=== PATIENT | female | born 1985 | race Caucasian/White ===

== ENCOUNTER 2019-10-25 11:58 | Emergency (ER) | payer OTHER, SELFPAY ==
[2019-10-25 12:13] VITALS: BP 142/80; PULSE 80; RESP 16; TEMP 36.4; O2SAT 100
--- NOTE | 2019-10-25 12:39 | ED.URI ---
HPI - URI/Sore Throat General Chief Complaint: Upper Respiratory Infection Stated Complaint: sore throat Time Seen by Provider: 10/25/19 12:24 Source: patient Mode of arrival: ambulatory Limitations: no limitations History of Present Illness HPI Narrative: A 34 y/o female, who is a nonsmoker/nondrinker, presents to with c/o a sore throat for 1 week that has worsened since onset. Pt notes that she was diagnosed with strep 2 months ago with similar onset of symptoms. Pt works as a elementary school teacher's aide. She reports a cough and sinus drainage, but denies a fever, rhinorrhea, and N/V/D. Pt in the room with her 5 year old son who is being seen for a fever and cough- whose available test are normal . The patienhas been informed that they may have pre-hypertension or Hypertension based on a BP reading in the department. I recommend that the patient call the primary care provider listed on their discharge instructions or a physician of their choice this week to arrange follow up for further evaluation of possible pre-hypertension or Hypertension Onset (ago): week(s) (1) Consistency: progressively worsening Related Data Home Medications Medication Instructions Recorded Confirmed escitalopram oxalate mg 10/25/19 norethindrone-e.estradiol-iron [Lo tablet 10/25/19 Loestrin Fe] Allergies Allergy/AdvReac Type Severity Reaction Status Date / Time No Known Allergies Allergy Unknown Unverified 05/21/19 06:09 Review of Systems Review of Systems: Narrative: General/Constitutional: Denies: weight loss,fever Eyes: Denies: Redness,discharge Ears/Nose/Throat: Reports: sore throat, sinus drainage; Denies: Epistaxis,ear discharge, rhinorrhea Respiratory: Reports: a cough; Denies: Hemoptysis Gastrointestinal: Denies: N/V/D, Bleeding-rectal Skin: Denies: Lumps, eruption Neurologic: Denies: Focal Weakness,Sz Hematologic: Denies: Petechiae/Purpura Psychiatric: Denies: Suicidal ideation All systems reviewed & are unremarkable except as noted in HPI and below PMFSH Past Medical History Medical History (Updated 10/25/19 @ 12:59 by Derik Ochoa MD) Gestational HTN depression Strep throat Surgical History Surgical History H/O bilateral breast reduction surgery History of tonsillectomy Social History Social History (Updated 10/25/19 @ 12:45 by Emily Rider) Smoking status: Never smoker Alcohol intake: never Comments PCP: Dr. Orozco At time of signature, agree with nursing past medical, surgical, social and family history. There is no relevant family history pertinent to the presenting complaint Exam Narrative: Exam Narrative: General Appearance: Well appearing, Well nourished EYE: PERRLA, Conjunctiva clear Ears: Auditory canal normal, TM normal Nose: Rhinorrhea, Mucousal erythema Mouth/Throat: MM moist, Uvula midline, Pharyngeal erythema Neck: Supple, No adenopathy Respiratory: No respiratory distress, airway patent Cardiovascular: RRR, Musculoskeletal: Non tender, Normal strength Skin: Warm, Dry Neurological: A&O x3, CN II-XII intact Psychiatric: Normal mood, Normal affect The patient agrees, in light of health emergency- in my medical judgement, only a personal or video chat was preferable to fully undress & examine the patient exhibiting potential COVID symptoms, in order to limit mutual risk of infection. Course Vital Signs Vital signs: Vital Signs Temperature 97.6 F 10/25/19 12:13 Pulse Rate 80 10/25/19 12:13 Respiratory Rate 16 10/25/19 12:13 Blood Pressure 142/80 H 10/25/19 12:13 Pulse Oximetry 100 10/25/19 12:13 Temperature 97.6 F 10/25/19 12:13 Pulse Rate 80 10/25/19 12:13 Respiratory Rate 16 10/25/19 12:13 Blood Pressure 142/80 H 10/25/19 12:13 Pulse Oximetry 100 10/25/19 12:13 MDM - URI/Sore Throat Lab Data Labs: Influenza A Screen Negative Ref
== END 2019-10-25 13:08 | disposition home or self-care (01) ==
PROVIDERS: Emergency Provider Emergency Medicine; PCP Family Medicine
DX: J02.9 Acute pharyngitis, unspecified (principal)
CPT/HCPCS: 87081; 87804; 87880; 99213; G0463

== ENCOUNTER 2020-04-27 17:34 | Outpatient (CLI) | payer OTHER, SELFPAY ==
--- NOTE | ~2020-04-27 | XR_ITS ---
EXAMINATION: XR foot RT min 3V DATE: 04/27/2020 17:56 INDICATION: Chronic medial foot and ankle pain TECHNIQUE: Dorsoplantar, lateral, and 2 oblique views of the right foot were obtained. COMPARISON: None. FINDINGS: There is soft tissue swelling of ankle. An age-indeterminate avulsion fracture of the later al malleolus is noted. Bone alignment of the foot is normal. No foot fracture is identified. IMPRESSION: 1. No acute osseous abnormality of the foot. 2. Age-indeterminate fracture of the lateral malleolus. Reviewed, dictated and finalized at location A.
--- NOTE | ~2020-04-27 | XR_ITS ---
EXAMINATION: XR ankle RT min 3V INDICATION: Right ankle pain TECHNIQUE: Four views of the right ankle are obtained. COMPARISON: None available FINDINGS: There is an age-indeterminate avulsion fracture of the lateral malleolus. Ankle soft tissue swelling is present. There is no subluxation. IMPRESSION: 1. Age-indeterminate avulsion fracture of the lateral malleolus. Reviewed, dictated and finalized at location A.
== END 2020-04-27 17:35 | disposition home or self-care (01) ==
LOC: CHSIMG 17:36
PROVIDERS: PCP Family Medicine; Visit Provider Family Medicine
DX: M25.579 Pain in unspecified ankle and joints of unspecified foot (principal)
CPT/HCPCS: 73610; 73630

== ENCOUNTER 2020-05-02 15:55 | Outpatient (RCR) | payer OTHER, SELFPAY ==
--- NOTE | 2020-05-05 15:00 | PTOPEVAL ---
Thank you for referring Lo Palacios to [facility].? The patient is scheduled to be seen for therapy? _2___x/week for 8 visits. Please review, sign, date and return this plan of care ANGEL. I agree with and certify that the following plan of care is medically necessary. Referring Physician Date Admitting Provider: Attending Provider: John Paul Orozco MD Referring Provider: *PT Outpatient Evaluation Start: 05/02/20 16:05 Freq: Status: Active Protocol: Document 05/02/20 16:00 OZZY (Rec: 05/05/20 15:00 OZZY [id number]) Therapy Assessment Status Assessment Status Assessment Status Evaluation Evaluation Information Problem Diagnosis right ankle/foot pain Onset 04/20/20 Subjective Information Pt. reports that she has had Query Text:As Reported By Patient/ several years of on/off right Family foot pain. She describes pain into the heel and arch of the right foot. She states that pain is increased with standing activities. She has attempted stretching and icing with little relief. She reports that her goal is to decrease her right foot pain. Pain Assessment Pain Scale Pain Scale Used Numeric (1 - 10) Self Report Pain Assessment Right Foot/Feet Reported Pain Level 8 Pain Score Pain Score 8: Self Report Lower Extremity Range of Motion General Lower Extremity Range of Motion Gross Lower Extremity Range of Motion right ankle DF AROM with knee Comments extended 5 degrees left ankle DF AROM with knee extended 14 degrees Pt. presents with 60 degrees passive great toe extension on both right and left Lower Extremity Muscle Strength Testing General Lower Extremity Strength Gross Lower Extremity Strength bilateral hip abduction 4/5 right ankle inversion4/5 right ankle eversion 4+/5 Posture Posture Standing Position Additional Posture Comments Pt. presents with excessive calcaneal valgus and forefoot valgus in standing on the right compared to the left. Palpation Assessment Palpation Palpation TTP noted at the area of the medial calcaneus on the right and into the medial longitudinal arch. Gait Assessment Gait Assessment
== END 2020-05-19 10:20 | disposition home or self-care (01) ==
LOC: CHSPT 15:55
PROVIDERS: PCP Family Medicine; Visit Provider Family Medicine
DX: M25.571 Pain in right ankle and joints of right foot (principal)
CPT/HCPCS: 97110; 97112; 97140; 97161

== ENCOUNTER → 2021-06-27 13:47 | Outpatient (REF) | payer OTHER, SELFPAY | LOC: ANHLAB 13:47 | PROVIDERS: PCP Family Medicine; Visit Provider Nurse Practitioner | DX: D22.4 Melanocytic nevi of scalp and neck (principal) | CPT/HCPCS: 88305 ==

== ENCOUNTER 2021-08-07 16:15 | Outpatient (CLI) | payer OTHER, SELFPAY ==
--- NOTE | ~2021-08-07 | XR_ITS ---
EXAMINATION: XR foot LT min 3V EXAM DATE: 08/07/2021 16:47 INDICATION: Pain across top of foot x 3 mo no injury . TECHNIQUE: Right foot dorsoplantar, lateral and oblique projections obtained and reviewed. There is no prior study for comparison. FINDINGS: Right metatarsal bones unremarkable. No periosteal reaction or band of sclerosis to sugge st subacute stress fracture. There are no bony erosions identified. There is mild left ankle osteoa rthritis. There are no acute fractures or dislocations identified. There is no subcutaneous gas. Th e soft tissue is unremarkable. There are no radiopaque foreign bodies. IMPRESSION: 1. Unremarkable XR foot LT min 3V exam. Reviewed, dictated and finalized at location A. IAGE AND FAMILY COUNSELOR
== END 2021-08-07 16:16 | disposition home or self-care (01) ==
LOC: CHSIMG 16:17
PROVIDERS: PCP Family Medicine; Visit Provider Family Medicine
DX: M79.672 Pain in left foot (principal)
CPT/HCPCS: 73630

== ENCOUNTER 2022-06-14 10:46 | Outpatient (RCR) | payer OTHER, SELFPAY ==
[2022-06-14 11:09] VITALS: BMI 52.0
[2022-06-14 14:39] VITALS: BMI 52.0
== END 2022-09-10 14:35 | disposition home or self-care (01) ==
LOC: ANHDMC 10:46
PROVIDERS: PCP Family Medicine; Visit Provider Family Medicine
DX: Z71.3 Dietary counseling and surveillance (principal)
CPT/HCPCS: 97802

== ENCOUNTER 2023-06-25 11:00 | Outpatient (CLI) | payer OTHER, SELFPAY ==
--- NOTE | ~2023-06-25 | XR_ITS ---
XR chest 2V 06/25/2023 11:55 Indication: Acute upper respiratory infection and cough for 3 days Procedure: 2 view chest Comparison: No prior studies for comparison. Findings: There is left upper and lower lobe pneumonia. No pleural effusion. Heart size normal. Right lung clear. Impression: 1: Left upper and lower lobe pneumonia. Reviewed, dictated and finalized at location L. RMELON HARVESTING SUPERVISOR Impression: 1: Left upper and lower lobe pneumonia.
== END 2023-06-25 11:01 | disposition home or self-care (01) ==
LOC: CHSIMG 11:04
PROVIDERS: PCP Family Medicine; Visit Provider Family Medicine
DX: J06.9 Acute upper respiratory infection, unspecified (principal); J18.9 Pneumonia, unspecified organism
CPT/HCPCS: 71046

== ENCOUNTER 2023-07-08 09:00 | Outpatient (CLI) | payer OTHER, SELFPAY ==
--- NOTE | ~2023-07-08 | XR_ITS ---
EXAMINATION: XR chest 2V 07/08/2023 09:16 INDICATION: Pneumonia. Shortness of breath. PROCEDURE: 2 view chest COMPARISON: 06/25/2023 FINDINGS: The lungs are clear. The cardiomediastinal silhouette is within normal limits. There are no pleural effusions. There is no pneumothorax suspected. Interval resolution of left-sided pneumon ia. IMPRESSION: 1: NO ACUTE CARDIOPULMONARY DISEASE. Reviewed, dictated and finalized at location B. PROFESSOR
== END 2023-07-08 09:01 | disposition home or self-care (01) ==
PROVIDERS: PCP Family Medicine; Visit Provider Family Medicine
DX: J18.9 Pneumonia, unspecified organism (principal)
CPT/HCPCS: 71046

== ENCOUNTER 2024-04-20 14:24 | Outpatient (CLI) | payer BC, SELFPAY ==
--- NOTE | ~2024-04-20 | MM_ITS ---
EXAMINATION: MM screening corinne BI w sony HISTORY: Screening mammogram TECHNIQUE: Craniocaudal and mediolateral oblique 3-D tomosynthesis images were obtained and synthetic 2-D images were generated. CAD analysis was submitted and interpreted. COMPARISON: No prior mammogram is available for comparison at this institution. BREAST PARENCHYMAL COMPOSITION:Not Dense. The breasts are almost entirely fatty FINDINGS: No suspicious mass, calcification, or architectural distortion are identified in either dennis ast to suggest malignancy. There has been no suspicious interval change. IMPRESSION: No mammographic evidence of malignancy. Recommend routine screening mammography in one year. BI-RADS Category 1: Negative Reviewed, dictated and finalized at location .
== END 2024-04-20 14:25 | disposition home or self-care (01) ==
PROVIDERS: PCP Family Medicine; Visit Provider Obstetrics & Gynecology
DX: Z12.31 Encounter for screening mammogram for malignant neoplasm of breast (principal)
CPT/HCPCS: 77063; 77067

== ENCOUNTER 2024-08-26 10:00 | Outpatient (CLI) | payer BC, SELFPAY ==
--- NOTE | ~2024-08-26 | XR_ITS ---
EXAMINATION: XR ankle LT min 3V DATE: 08/26/2024 10:38 INDICATION: Left ankle injury and pain. TECHNIQUE: 4 views of left ankle were obtained. COMPARISON: Left foot radiographs 09/26/2021 FINDINGS: Alignment is normal. No fracture. Joint spaces are normal. There is an enthesophyte at plan tar aspect of calcaneal tuberosity. IMPRESSION: 1. No fracture. Reviewed, dictated and finalized at location B. EAR SCIENTIST IMPRESSION: 1. No fracture.
== END 2024-08-26 10:01 | disposition home or self-care (01) ==
PROVIDERS: PCP Family Medicine; Visit Provider Nurse Practitioner Family
DX: S99.912A Unspecified injury of left ankle, initial encounter (principal)
CPT/HCPCS: 73610

== ENCOUNTER 2025-04-20 08:41 | Outpatient (CLI) | payer BC, SELFPAY ==
--- NOTE | ~2025-04-20 | XR_ITS ---
EXAMINATION: XR chest 2V DATE: 04/20/2025 09:28 INDICATION: Persistent cough and shortness of breath TECHNIQUE: PA and lateral views of the chest were obtained. COMPARISON: Chest radiograph dated 07/08/2023 FINDINGS: The lungs are clear with no focal airspace opacities, pulmonary edema, pleural effusion or pneumothorax. The cardiomediastinal silhouette is normal. Mild to moderate midthoracic spondylosis. IMPRESSION: 1. No acute cardiopulmonary disease. Reviewed, dictated and finalized at location A.
[2025-04-20 08:56] LABS: Hematocrit 40.1 % (35.0-49.0); Hemoglobin 12.7 g/dL (12.0-15.0); Mean Corpuscular HGB Conc 31.7 g/dL (32-36); Mean Corpuscular Hemoglobin 28.1 pg (27.0-31.0); Mean Corpuscular Volume 88.7 fL (78.0-102.0); Platelet Count Result 237 K/mm3 (150-420); Red Blood Count 4.52 M/mm3 (4.20-5.40); White Blood Count 12.4 K/mm3 (4.8-10.8)
[2025-04-20 09:07] LABS: Alanine Aminotransferase 31 U/L (6-35); Albumin Level 4.6 g/dL (3.5-5.1); Alkaline Phosphatase 62 U/L (38-126); Anion Gap 13 mmol/L (4-12); Aspartate Amino Transferase 30 U/L (14-36); Bilirubin,Total 0.6 mg/dL (0.2-1.3); Blood Urea Nitrogen 12 mg/dL (7-17); Calcium 9.3 mg/dL (8.4-10.2); Carbon Dioxide 24 mmol/L (22-30); Chloride 102 mmol/L (98-107); Estimated Glomerular Filt Rate > 60; Glucose 92 mg/dL (65-110); Osmolality Calculated 287 mOsm/kg (285-295); Potassium 4.1 mmol/L (3.4-5.0); Sodium 139 mmol/L (137-145); Total Protein 7.6 g/dL (6.3-8.2)
== END 2025-04-20 08:42 | disposition home or self-care (01) ==
LOC: CHSLAB 08:46
PROVIDERS: PCP Family Medicine; Visit Provider Nurse Practitioner Family
DX: R05.3 Chronic cough (principal); R06.02 Shortness of breath
CPT/HCPCS: 36415; 71046; 80053; 85027

== ENCOUNTER 2025-05-19 10:43 | Outpatient (CLI) | payer BC, SELFPAY | END 2025-05-19 10:44 | disposition home or self-care (01) | PROVIDERS: PCP Family Medicine; Visit Provider Nurse Practitioner Family | DX: R05.9 Cough, unspecified (principal); R94.2 Abnormal results of pulmonary function studies | CPT/HCPCS: 94060; 94726; 94729 ==

== ENCOUNTER 2025-06-04 07:19 | Outpatient (CLI) | payer BC, SELFPAY ==
--- NOTE | ~2025-06-04 | MM_ITS ---
EXAMINATION: MM screening [facility] BI w sony HISTORY: Screening TECHNIQUE: Craniocaudal and mediolateral oblique 3-D tomosynthesis images were obtained and synthetic 2-D images were generated. CAD analysis was submitted and interpreted. COMPARISON: 04/20/2024 BREAST PARENCHYMAL COMPOSITION: Not dense: There are scattered areas of fibroglandular density. FINDINGS: There is a new focal asymmetry in the upper outer quadrant of the right breast in the subareolar location. There is a new asymmetry in the outer aspect of the left breast on CC view, middle third. IMPRESSION: 1. New bilateral breast asymmetries. 2. Additional mammographic views and possible breast ultrasound are recommended. BI-RADS Category 0: Incomplete: Needs additional imaging evaluation. Reviewed, dictated and finalized at location C. IMPRESSION: 1. New bilateral breast asymmetries. 2. Additional mammographic views and possible breast ultrasound are recommended . BI-RADS Category 0: Incomplete: Needs additional imaging evaluation.
== END 2025-06-04 07:20 | disposition home or self-care (01) ==
LOC: CHSIMG 07:19
PROVIDERS: PCP Family Medicine; Visit Provider Obstetrics & Gynecology
DX: Z12.31 Encounter for screening mammogram for malignant neoplasm of breast (principal); R92.8 Other abnormal and inconclusive findings on diagnostic imaging of breast
CPT/HCPCS: 77063; 77067

== ENCOUNTER 2025-06-15 10:03 | Outpatient (CLI) | payer BC, SELFPAY ==
--- NOTE | ~2025-06-15 | MMUS_ITS ---
EXAMINATION: MM diagnostic corinne BI w sony, US breast BI complete HISTORY: Follow-up breast asymmetries TECHNIQUE: Additional 3-D tomosynthesis images of the breasts were performed and synthetic 2-D images were generated. CAD analysis was submitted and interpreted. High resolution bilateral complete breast ultrasound was performed. COMPARISON: Comparison to multiple prior studies sequentially, with oldest reviewed study dated 04/20/2024. BREAST PARENCHYMAL COMPOSITION: There is a small persistent mass in the upper outer quadrant of the right breast, anterior third. FINDINGS: MAMMOGRAPHIC FINDINGS: There are no suspicious masses, calcifications or architectural distortion in the left breast to suggest malignancy. ULTRASOUND: Complete US of all 4 quadrants of the breast/s and retroareolar region was reviewed. Right breast: In the subareolar location there is a 5 mm cyst. No suspicious masses are identified in the right breast to suggest malignancy. Left breast: Normal heterogeneous echotexture throughout the left breast without discrete mass. IMPRESSION: 1. No evidence for malignancy in either breast. Benign left breast cyst corresponding to mass seen on mammogram. 2. Routine yearly screening mammogram and regular clinical breast examination are recommended. BI-RADS CATEGORY 2 - BENIGN FINDINGS Reviewed, dictated and finalized at location B. ELECTRONICS INSTALLER IMPRESSION: 1. No evidence for malignancy in either breast. Benign left breast cyst corresp onding to mass seen on mammogram. 2. Routine yearly screening mammogram and regular clinical breast examination a re recommended. BI-RADS CATEGORY 2 - BENIGN FINDINGS
== END 2025-06-15 10:04 | disposition home or self-care (01) ==
PROVIDERS: PCP Family Medicine; Visit Provider Obstetrics & Gynecology
DX: R92.8 Other abnormal and inconclusive findings on diagnostic imaging of breast (principal)
CPT/HCPCS: 76641; 77062; 77066; G0279

== ENCOUNTER 2025-06-18 03:36 | Day surgery (SDC) | payer BC, SELFPAY ==
--- NOTE | 2025-06-07 15:24 | SUR.PREOP ---
[facility] has started construction of its new state of the art ER which will open Spring 2026. With this, we anticipate parking may be a challenge for some our surgical patients and families. Parking spaces are limited but are available for all Surgical, obstetrics, and ER patients sharing this lot. If you arrive and find you are having a hard time finding a parking space, please note that we understand the challenges, please drive around the hospital and park near Hospital Entrance 1. When you enter this entrance, you can ask a volunteer to direct or take you back to the surgical waiting area to check in. We appreciate everyone?s understanding of these expected challenges while we build for your future. Report to the Outpatient Waiting Room, entrance under the green pavilion located off [address], at time _745AM_ on date __06/18/25__. Planned Procedure Time: _945AM_.? Time changes happen often and if your time is changed the preop area will call you the afternoon before. - You and your visitor will be asked to self-screen and do not enter if you have any COVID symptoms. Please call surgeon if you need to reschedule. - A mask is optional within the hospital at this time. Patients may have clear liquids (water, carbonated beverages, clear teas, apple juice) until 3 hours prior to surgery with a maximum of 20 ounces. - No food from midnight until time of surgery and no smoking, or chewing tobacco (or any form of nicotine). No chewing gum, candy or mints. Take only the following medications with a SIP of water on the morning of surgery: __bupropion, escitalopram__ DO NOT STOP ANY OF YOUR OTHER PRESCRIPTION MEDICATIONS PRIOR TO SURGERY EXCEPT THE FOLLOWING Hold all vitamins and supplements for 3 days per anesthesiologist. Medications to discontinue per physician __none__ Date to take last dose of vitamins__06/14/25___ Please no make-up, nail georgian, hairspray, perfume, deodorant, or body powder the day of surgery.? No jewelry (including any body piercings) or valuables the day of surgery, leave them at home.? Please take a shower or bath the night before, or the morning of, surgery with an antibacterial soap.? Wear comfortable, loose fitting clothing.? - Jewelry must be removed prior to entering the operating room.? Rings and piercings that are not removed may be cut off. - The hospital will not accept responsibility for valuables.? - Please leave all valuables, including medications, at home the day of surgery. If you are going home after surgery, a licensed canal driver must drive you home.? - NO public transportation without another adult if you receive anesthesia. - We recommend that an adult stay with you for 24 hours following discharge. - We also recommend that you do not drive, make important decision, drink alcoholic beverages, or take any drugs that were not prescribed by your health care provider for at least 24 hours after your discharge time. Follow any additional instructions given to you from your surgeon. Telephone instructions given to _Lo_and asked if any additional questions and then verbalized understanding. Patient advised to call surgeon office or pre surgery nurse liaison [phone] if any additional questions.
[2025-06-07 15:34] VITALS: BMI 52.2
--- NOTE | 2025-06-14 07:35 | PM.IMHP ---
H&P: HPI History of Present Illness Date/Time: 06/14/25 07:35 Chief Complaint: ISD Narrative: Lo Palacios is a 40-year-old female who presents for evaluation of a urologic disorder at the request of Dr. Jeremy Miguel, her head porter baggage, and Dr. Kamari Prescott, her primary care physician. She reports experiencing significant stress urinary incontinence, which worsened following a severe coughing episode in March. During this episode, she completely lost control over her bladder. She denies urgency-related incontinence but notes that coughing, sneezing, laughing, jumping, or lifting exacerbates her symptoms. She states that if she becomes ill, she has no control over her bladder at all. She denies blood in the urine, burning during urination, or urinary tract infections. She has attempted Kegel exercises independently but is uncertain of their effectiveness. She describes a recent incident where she had a coughing fit at the dinner table and wet herself in front of her children, which she found distressing. 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 She expresses interest in pursuing treatment options beyond observation or physical therapy. A bladder scan was completed to evaluate for urinary retention as possible cause for voiding symptoms. Review of Systems Review of Systems: All systems reviewed & are unremarkable except as noted in HPI and below PMFSH Past Medical History Medical History Neuritis of left foot Traumatic rupture of plantar fascia of right foot Plantar fasciitis of right foot Seasonal allergies Anxiety Depression Strep throat depression Gestational HTN Surgical History Surgical History History of wisdom tooth extraction History of tonsillectomy H/O bilateral breast reduction surgery Family History Family History Other Arthritis Heart disease Hypertension Malignant neoplasm Social History Social History Smoking status: Never smoker Alcohol intake: current Drinks per week: 4 Living arrangements: with family Spiritual care concerns: No Meds Home Medications and Allergies Home Medications ?Medication ?Instructions ?Recorded ?Confirmed ?Type cetirizine 10 tablet PO DAILY PRN allergy 05/31/20 06/07/25 History symptoms fluticasone propionate 1 spray intranasal .am PRN 05/31/20 06/07/25 History allergic symptoms mv,Ca,qig-gwlo-JR-guarana-caff 1 tablet PO DAILY 05/31/20 06/07/25 History levonorgestrel (Mirena) 1 insert intrauterine ONCE 04/27/21 06/07/25 History bupropion HCl 150 mg 24 hr tablet, 150 mg PO QAM 05/03/25 06/07/25 History extended release (Wellbutrin XL) estradiol 2 mg tablet 2 mg PO DAILY #7 tabs 05/03/25 06/07/25 Rx topiramate 100 mg tablet (Topamax) 100 mg PO DAILY 05/03/25 06/07/25 History escitalopram oxalate 20 mg tablet 20 mg PO DAILY #90 tabs 05/05/25 06/07/25 Rx (Lexapro) ascorbic acid (vitamin C) 250 mg 250 mg PO DAILY 06/07/25 06/07/25 History tablet (Vitamin C) magnesium aspart,citrate,oxide 400 mg PO DAILY 06/07/25 06/07/25 History Allergies Allergy/AdvReac Type Severity Reaction Status Date / Time No Known Allergies Allergy Unknown Verified 06/07/25 15:28 Exam Narrative: - General appearance: ?No acute distress. - Building nutrition: ?Well-developed, well-nourished. - Integumentary: ?Overall skin examination reveals no significant rashes. - Head and Neck: ?Head Normocephalic atraumatic, Trachea Midline, Goiter None, Eye Extraocular movements intact. - Chest and Lung: ?Quiet and even respiratory effort without the use of accessory muscles of respiration, no cough or grunting. - Breast: ?Breast exam not indicated. - Cardiovascular: ?Lower extremity edema: trace, Lower extremity varicosities: none. - Abdomen: ?Inspection Abdomen flat, Incisions none, Palpation soft, non-rigid, no guarding. Female genitourinary: - External genitalia: Vulvar hair distribution hair present, Introitus No discharge, Urethral characteristics Orthotopic, non-tender, no diverticulum, stress incontinence present, mobility hypermobility. - Speculum and bimanual: Cystocele minimal, Vaginal Clayton supported, Rectocele minimal, Vaginal mucosa healthy. - Rectal: ?Normal anus and perineum, SAIGE not indicated. - Neurologic: ?General Alert and oriented x3. Active movement of all 4 extremities. - Pelvic floor muscle tone: ?normal. - Pelvic floor muscle tenderness: ?absent. - Lymphatic: ?No visible lymphadenopathy. -BMI 53 Assessment and Plan Assessment and plan (1) Intrinsic sphincter deficiency (ISD): Code(s): N36.42 - Intrinsic sphincter deficiency (ISD) Status: Acute Assessment and Plan: - Stress urinary incontinence secondary to intrinsic sphincter deficiency. PLAN: - We discussed the treatment options for stress urinary incontinence secondary to intrinsic sphincter deficiency, including observation, pelvic floor muscle rehabilitation, and transurethral bulking agents. She is most interested in the latter. ? - We discussed the alternatives, benefits, and risks. We discussed specifically the risks of bleeding, infection, failure to correct incontinence, injury to the urethra, obstructive voiding requiring catheterization, and de vy or worsening irritative voiding symptoms. She understands that the expected cure rate is between 65-75% and that the procedure will likely need to be repeated over time. We also discussed that treatment of intrinsic sphincter deficiency is unlikely to improve overactive bladder symptoms if present. ? - After an extensive discussion, she wishes to proceed with a bulking agent. -Body habitus precludes doing a urethral sling ?as such this procedure was not ?offered.
--- NOTE | 2025-06-18 07:15 | WPDHPUPDATE1 ---
History and Physical Update Update Date/Time: 06/18/25 07:15 History and Physical has been reviewed, including an updated exam of the patient. There are NO changes in the patient's condition. Risks, benefits, and alternatives have been discussed and questions answered. Patient agrees to proceed with procedure.
[2025-06-18 08:00] VITALS: BP 155/90; PULSE 85; RESP 18; TEMP 36.5; O2SAT 98
[2025-06-18] MEDS: LACTATED RINGERS 1,000 ML 30 ML IV CONT (08:25)
[2025-06-18] MEDS: SCOPOLAMINE 1 MG PATCH 1 PATCH TRANSDERM (09:16)
[2025-06-18 09:30] LABS: BEDSIDEPREGUCG Negative (Negative)
--- NOTE | 2025-06-18 09:36 | WPDANESEPPF ---
Anes - Initial Pre Proc Eval Procedure: Operation Date: 06/18/25 09:45 Proposed Procedures p Cystoscopy, Injection Bulking Agent - Zbigniew Mcmahon MD Date/Time: 06/18/25 09:36 Surgeon: Zbigniew Mcmahon MD Pre Op Diagnosis: ID Patient Data Age: 40 Gender: F Height: 1.61 m Weight: 138 kg Last Vital Signs Temp 36.5 C 06/18/25 08:00 Pulse 85 06/18/25 08:00 Resp 18 06/18/25 08:00 BP 155/90 H 06/18/25 08:00 Pulse Ox 98 06/18/25 08:00 O2 Del Method Room Air 06/18/25 08:00 Allergies Allergy/AdvReac Type Severity Reaction Status Date / Time No Known Allergies Allergy Unknown Verified 06/07/25 15:28 Home Medications ?Medication ?Instructions ?Recorded ?Confirmed ?Type cetirizine 10 tablet PO DAILY PRN allergy 05/31/20 06/18/25 History symptoms fluticasone propionate 1 spray intranasal .am PRN 05/31/20 06/18/25 History allergic symptoms mv,Ca,ano-pohl-FM-guarana-caff 1 tablet PO DAILY 05/31/20 06/18/25 History levonorgestrel (Mirena) 1 insert intrauterine ONCE 04/27/21 06/07/25 History bupropion HCl 150 mg 24 hr tablet, 150 mg PO QAM 05/03/25 06/18/25 History extended release (Wellbutrin XL) topiramate 100 mg tablet (Topamax) 100 mg PO DAILY 05/03/25 06/18/25 History escitalopram oxalate 20 mg tablet 20 mg PO DAILY #90 tabs 05/05/25 06/18/25 Rx (Lexapro) ascorbic acid (vitamin C) 250 mg 250 mg PO DAILY 06/07/25 06/18/25 History tablet (Vitamin C) magnesium aspart,citrate,oxide 400 mg PO DAILY 06/07/25 06/18/25 History Laboratory Tests 06/18/25 08:10 POC Urine HCG, Qual Negative (Negative) Patient hx anesthesia problems: none Family hx anesthesia problems: none Results Review: All pre-operative results and documents have been reviewed as part of the pre-operative evaluation. [facility] Past Medical History Medical History Neuritis of left foot Traumatic rupture of plantar fascia of right foot Plantar fasciitis of right foot Seasonal allergies Anxiety Depression Strep throat depression Gestational HTN Surgical History Surgical History History of wisdom tooth extraction History of tonsillectomy H/O bilateral breast reduction surgery Family History Family History Other Arthritis Heart disease Hypertension Malignant neoplasm Social History Social History Smoking status: Never smoker Alcohol intake: current Drinks per week: 2 Living arrangements: with family Spiritual care concerns: No Anes - Eval Final PreProcedure Day of Procedure 06/18/25 09:36 Patient weight: super morbidly obese Heart: regular rate and rhythm Lungs: clear to auscultation Airway: Mallampati scale class II Neurological: alert and oriented Last oral intake: >/= 8 hours ASA classification: III Emergent: no Anesthetic plan: proceed Anesthesia type and monitoring: general LMA and standard monitoring Results Review: All pre-operative results and documents have been reviewed as part of the pre-operative evaluation. Informed Consent: The patient's anesthetic plan and its attendant risks and benefits were discussed with the patient/family/POA. Questions were solicited and answers provided to the satisfaction of the patient/family/POA.
[2025-06-18] MEDS: ceFAZolin 3 GM/D5W 100 ML 100 ML IVPB (09:52)
[2025-06-18] MEDS: LIDOCAINE 2% GEL UROJET 10 ML PKG MUCOUS MEM (10:01)
[2025-06-18 10:11] VITALS: BP 129/60; PULSE 82; RESP 20; O2SAT 94
--- NOTE | 2025-06-18 10:11 | P.OP_ITS ---
Procedure Note - Detailed Date of Procedure 06/18/25 Pre-op Diagnosis Intrinsic sphincter deficiency Post-op Diagnosis Same Procedure Performed Cystoscopy with suburethral injection of implant material Surgeon Zbigniew Mcmahon MD Anesthesia MAC and Local (Lidocaine jelly) Indications She has stress incontinence due to intrinsic sphincter deficiency. She is not a candidate for urethral sling due to body habitus. She is here today for a bulking agent. Understands risks of bleeding, infection, lack of efficacy, urinary retention requiring catheterization, need for repeat procedures. She agrees to proceed Findings Uncomplicated bulking injection Description of Procedure She was correctly identified. Informed consent obtained. She was from the operating room. She was given monitored anesthesia care. She was placed in dorsal lithotomy position. She was prepped and draped sterile fashion. Time- out was performed. She was given appropriate perioperative antibiotics. Cystoscopy revealed a normal-appearing bladder without significant abnormalities. I chose a site in the mid urethra 2 cm distal to bladder neck. I injected the bulking agent circumferentially forming several pillows completely coapted the urethra. I used 2 syringes total. There was excellent bulking effect. Her bladder was left full. She was awakened transferred to PACU in stable condition Estimated Blood Loss 0 Pathology None sent Complications No immediate complications Condition Stable Disposition PACU
[2025-06-18 10:40] VITALS: BP 144/64; PULSE 77; O2SAT 99
[2025-06-18 11:10] VITALS: BP 146/64; PULSE 66
== END 2025-06-18 11:18 | disposition home or self-care (01) ==
PROVIDERS: PCP Family Medicine; Visit Provider Urology
PROC: 3E0K8GC Introduction of Other Therapeutic Substance into Genitourinary Tract, Via Natural or Artificial Opening Endoscopic (ICD-10-PCS; CPT 51715; principal; 2025-06-18 09:45)
DX: N36.42 Intrinsic sphincter deficiency (ISD) (principal); N39.3 Stress incontinence (female) (male); N32.81 Overactive bladder; F41.9 Anxiety disorder, unspecified; F32.A Depression, unspecified; E66.01 Morbid (severe) obesity due to excess calories; Z68.43 Body mass index [BMI] 50.0-59.9, adult; Z98.890 Other specified postprocedural states; Z80.9 Family history of malignant neoplasm, unspecified; Z82.49 Family history of ischemic heart disease and other diseases of the circulatory system
CPT/HCPCS: 51715; A9270; J0690; J2003; J2250; J2704; J3010; J7120; L8606